=== PATIENT | female | born 1955 | race Caucasian/White ===

== ENCOUNTER 2018-05-19 07:51 | Day surgery (SDC) | payer BC ==
[~2018-05-19 07:51] MED LIST: LIDOCAINE 2% (SDV) 5 ML INJ; SEVOFLURANE 15 MIN
[2018-05-19] MEDS ORDERED: ROPIVACAINE 0.5 % 30 ML VIAL (10:26)
[2018-05-19] MEDS ORDERED: ETOMIDATE 20 MG INJ (10:26)
[2018-05-19] MEDS ORDERED: PROPOFOL 20 ML (10:26)
[2018-05-19] MEDS ORDERED: FENTAnyl 50 MCG/ML VIAL (10:35)
[2018-05-19] MEDS ORDERED: KETOROLAC 30 MG INJ (10:47)
[2018-05-19] MEDS ORDERED: CEFAZOLIN 1 GM INJ (10:50)
[2018-05-19] MEDS: POLYMYXIN/BACITRACIN 1L IRRIG IRR (10:51)
[2018-05-19] MEDS ORDERED: LABETALOL HCL 20MG INJ IV (11:30)
[2018-05-19] MEDS ORDERED: hydrALAzine 20 MG INJ IV (11:30)
[2018-05-19] MEDS ORDERED: HYDROmorphONE 1 MG/5 ML IV SYRINGE IV ×2 (11:30)
[2018-05-19] MEDS ORDERED: HYDROCODONE/APAP (5/325) TAB PO (11:30)
== END 2018-05-19 13:12 | disposition home or self-care (01) ==
LOC: SDS 07:51
DX: D17.1 Benign lipomatous neoplasm of skin and subcutaneous tissue of trunk (principal)
CPT/HCPCS: 14001; 88307